=== PATIENT | male | born 1950 | race Caucasian/White ===

== ENCOUNTER 2017-01-09 06:30 | Inpatient (IN) | payer OTHER, MEDICARE ==
--- NOTE | 2016-12-22 14:02 | PAT Medication Instructions ---
Service Date Dec 22, 2016. Current Home Medication List Aspirin (Aspirin), 1 TAB PO QAM Cholecalciferol (Vitamin D), 1,000 INTER.UNIT PO 3XWK Escitalopram (Lexapro), 20 MG PO QAM Prednisone (Prednisone), 5 MG PO DAILY Sildenafil Citrate (Viagra), 100 MG PO PRN Medication Instructions For Your Scheduled Surgery - Hold the following medications the morning of surgery: Sildenafil Citrate (Viagra), 100 MG PO PRN Cholecalciferol (Vitamin D), 1,000 INTER.UNIT PO 3XWK - Take the following medications the morning of surgery with a sip of water: Prednisone (Prednisone), 5 MG PO DAILY Escitalopram (Lexapro), 20 MG PO QAM Aspirin (Aspirin), 81MG TAB PO QAM (okay to continue per surgeon) - Take the following medications as scheduled the night before surgery: Sildenafil Citrate (Viagra), 100 MG PO PRN If you have any questions please call us at [phone] (Fay Bermudez PA-C) or [phone] or [phone]
[2016-12-22 14:10] VITALS: BMI 26.0
[2016-12-22 14:10] LABS: BASO % 0.6 %; BASO ABS # 0.04 K/uL (0-0.2); COMPLETE YES; EOS % 0.1 %; HEMATOCRIT 43.8 % (42-52); IG% 0.1 %; LYMPH % 18.3 %; LYMPH ABS # 1.27 K/uL (1.2-3.4); MEAN CELL VOLUME 91.8 fL (80-100); MEAN CORPUSCULAR HEMOGLOBIN 33.3 pg (25-34); MEAN CORPUSCULAR HGB CONC 36.3 g/dl (32-36); MEAN PLATELET VOLUME 9.9 fL (7.4-10.4); MONO % 5.6 %; NEUT % 75.3 %; PLATELET COUNT 244 K/uL (130-400); RED BLOOD COUNT 4.77 M/uL (4.7-6.1); WHITE BLOOD COUNT 6.95 K/uL (4.8-10.8)
[2016-12-22 14:14] LABS: PROTHROMBIN TIME (PATIENT) 11.1 SECONDS (9.0-12.0)
--- NOTE | 2016-12-22 14:39 | DIAGNOSTIC IMAGING REPORT ---
CHEST PREADMISSION(PA/LAT) HISTORY: Preop. COMPARISON: Chest 11/05/2015. FINDINGS: Bibasilar linear densities favor subsegmental atelectasis. This has improved. No new focal lung consolidations. No evidence for pulmonary edema. No pleural effusions. No pneumothorax. The heart is normal in size. Old, healed right-sided rib fractures. IMPRESSION: Improvement in the bibasilar linear densities suggesting atelectasis. Electronically signed by: Moose Atkins M.D. 12/22/2016 2:38 PM Dictated Date/Time: 12/22/2016 2:36 PM
[2016-12-22 14:49] LABS: BUN/CREATININE RATIO 19.8 (10-20); CREATININE 0.74 mg/dl (0.60-1.40)
--- NOTE | 2017-01-02 23:18 | HISTORY & PHYSICAL EXAMINATION ---
DATE OF ADMISSION: 01/09/2017 CHIEF COMPLAINT: Right hip pain. HISTORY OF PRESENT ILLNESS: A 66-year-old gentleman who presents for surgical treatment of his right hip. He had his left hip replaced back in April of 2015. He has done well from this. Over the past year or so he has developed increased pain and discomfort in his right hip. He described groin and thigh pain. He has difficulty putting his shoes and socks on. The more he walks, the more it hurts. He is happy with his left hip and would like to have his right hip replaced. PAST MEDICAL HISTORY: 1. Depression. 2. Low back pain. 3. Arthritis. PAST SURGICAL HISTORY: 1. Knee surgery. 2. Herniorrhaphy. 3. Left total hip replacement done 04/24/2015. ALLERGIES: None. CURRENT MEDICINES: 1. Escitalopram once a day. 2. Vitamin D. 3. Baby aspirin once a day. 4. Prednisone 5 mg every other day for arthritis. SOCIAL HISTORY: A 66-year-old male patient from [place]. He is retired. He is . Two drinks per day. Does not smoke. Does chew snuff. FAMILY HISTORY: Significant for heart disease. REVIEW OF SYSTEMS: Negative for diabetes, neurologic problems, vascular problems or bleeding disorders. No chest pain or shortness of breath. No history of DVT. PHYSICAL EXAMINATION: GENERAL: Physical examination reveals a healthy, pleasant, middle-aged male. He looks to be in good health. HEENT: Benign. NECK: Supple. No lymphadenopathy. LUNGS: Clear to auscultation. HEART: Regular rate and rhythm. ABDOMEN: Soft, nontender, nondistended. EXTREMITIES: Grossly neurovascularly intact except as follows: Examination of the right hip reveals patient walks with a bit of an antalgic gait. He is about 0.5 cm short on the right side compared to the left. He has got very stiff hip and pain with any type of internal rotation. Negative straight leg raise. X-RAYS: X-rays of the right hip reviewed. It shows advanced right hip DJD. He has got complete loss of his superior joint space. He has got osteophytes particularly in the medial osteophyte. Good bone density. ASSESSMENT: A 66-year-old male status post a left total hip replacement a year and a half out with advanced right hip degenerative joint disease. He would like to have his right hip replaced. PLAN: We are going to take him to the operating room and do a right total hip replacement. The risks and benefits of this procedure were explained to patient including but not limited to DVT, PE, , infection, neurological injury, vascular injury, bleeding problems, pain, limited range of motion, stiffness, failure to relieve symptoms, incomplete relief of symptoms, need for further surgery in the future, fracture, leg length inequality, nerve palsy, dislocation, etc. The patient understands and desires to proceed. Informed consent was obtained. He does take prednisone occasionally but I do not think he takes enought to warrant stress dose steroids perioperativiely. He is planning to be discharged to home using [facility] program. I will see him back 2 weeks postop. YADIRA
[~2017-01-09] VITALS: Ht 175.3 cm; Wt 80.1 kg
[2017-01-09] VITALS (18 sets, daily range): BP systolic 91–149; BP diastolic 55–88; PULSE 66–91; TEMP 34.8–36.5; O2SAT 90–96; Ht 175.3 cm; Wt 80.1 kg
[~2017-01-09 06:30] MED LIST: ACETAMINOPHEN 500 MG TAB PO SCH; ASPI-461 PO; CEFAZOLIN 2000 MG/60 ML D5W 60 ML IV SCH; CHOL100010 PO; ESCI10TA17 PO; FAMOTIDINE 20 MG TAB PO SCH; GABAPENTIN 300 MG CAP PO SCH; LACTATED RINGER'S 1000ML 1,000 ML IV SCH; LACTATED RINGER'S 1000ML 500 ML IV ONE; LACTATED RINGER'S 1000ML IV SCH; METOCLOPRAMIDE HCL 10 MG TAB PO SCH; MISSING PHYSICIAN SIGNATURE ON ORDER SCH; PRED-301 PO; SCOPOLAMINE 1.5 MG TDSY TD SCH; SILD100T PO; TRANEXAMIC ACID INJ 1,000 MG in SODIUM CHLORIDE 0.9% 100ML 100 ML IV SCH
--- NOTE | 2017-01-09 06:51 | History & Physical Bridge Note ---
H&P Re-Evaluation Bridge Note: I have examined the patient, reviewed the History & Physical and in the interval since the performance of the History & Physical I have noted the following changes of clinical significance: No changes noted
[2017-01-09] MEDS ORDERED: BUPIVACAINE 0.5 % 5 MG/1 ML PF 10ML VIAL ONE (07:08)
[2017-01-09] MEDS ORDERED: PROPOFOL IV EMULSION 10 MG/ML 20 ML VIAL IV ONE (07:17)
[2017-01-09] MEDS ORDERED: MIDAZOLAM HCL 1 MG/ML 2ML VIAL ONE ×2 (07:17)
[2017-01-09] MEDS ORDERED: MoRPHine SULFATE PF 1 MG/ML 10 ML AMP/VIAL ONE (07:21)
[2017-01-09] MEDS ORDERED: BUPIVACAINE/EPINEPHRINE 0.5% MPF 1:200,000 30 ML VIAL ONE (07:38)
[2017-01-09] MEDS ORDERED: BACITRACIN 50000 UNIT VIAL ONE (07:38)
[2017-01-09] MEDS ORDERED: DC INTRASPINAL MORPHINE SCH (08:15)
[2017-01-09] MEDS ORDERED: NALOXONE HCL INJ 0.08 MG in SYRINGE 1.8 ML IV PRN (08:29)
[2017-01-09] MEDS ORDERED: SODIUM CHLORIDE 0.9% 1000ML 1,000 ML IV PRN (08:29)
[2017-01-09] MEDS ORDERED: NALOXONE HCL INJ 1 MG in SODIUM CHLORIDE 0.9% 1000ML 1,000 ML IV PRN ×4 (08:29)
[2017-01-09] MEDS ORDERED: LACTATED RINGER'S 1000ML 500 ML IV PRN (08:29)
[2017-01-09] MEDS ORDERED: NALBUPHINE HCL INJ 10 MG/ML AMP IV PRN (08:30)
[2017-01-09] MEDS ORDERED: NALOXONE HCL 0.4 MG/1 ML VIAL/CARP IV PRN (08:30)
[2017-01-09] MEDS ORDERED: PROMETHAZINE HCL INJ 25 MG in SODIUM CHLORIDE 0.9% 50ML 50 ML IV PRN (08:30)
[2017-01-09] MEDS ORDERED: NO NARCOTICS OR SEDATIVES SCH (08:30)
[2017-01-09] MEDS ORDERED: DiphenhydrAMINE HCL 50 MG/ML VIAL IV PRN (08:30)
[2017-01-09] MEDS ORDERED: PHENYLEPHRINE 100MCG/ML 5ML SYR IV PRN (08:30)
[2017-01-09] MEDS ORDERED: EpHEDrine SULFATE INJ 50 MG/ML AMP IV PRN ×2 (08:30)
[2017-01-09] MEDS ORDERED: ONDANSETRON INJ 2 MG/ML 2 ML VIAL IV PRN ×2 (08:30)
[2017-01-09] MEDS ORDERED: KETOROLAC TROMETHAMINE 15 MG/ML VIAL IV. PRN (08:30)
[2017-01-09] MEDS ORDERED: MEPERIDINE HCL 25 MG/ML CARP IV PRN (08:30)
[2017-01-09] MEDS ORDERED: ATROPINE SULFATE 0.1 MG/ML 5ML SYR IV PRN (08:30)
[2017-01-09] MEDS ORDERED: KETOROLAC TROMETHAMINE 30 MG/ML VIAL IV. PRN (08:30)
[2017-01-09] MEDS ORDERED: MoRPHine SULFATE PF 1 MG/ML 10 ML AMP/VIAL EPI PRN (08:30)
[2017-01-09] MEDS ORDERED: HYDROmorphone INJ 2 MG/ML SYR/VIAL IV PRN (08:30)
[2017-01-09] MEDS ORDERED: PHENYLEPHRINE HCL INJ 10 MG/ML VIAL ONE (09:21)
[2017-01-09] MEDS ORDERED: EpHEDrine SULFATE 50MG/5ML SYR ONE (09:21)
--- NOTE | 2017-01-09 10:19 | [facility] Post Operative Brief Note ---
Immediate Operative Summary Operative Date Jan 09, 2017. Pre-Operative Diagnosis Advanced Right Hip Degenerative Joint Disease Post-Operative Diagnosis Advanced Right Hip Degenerative Joint Disease Procedure(s) Performed Right Total Hip Arthroplasty, Uncemented Surgeon Dr. Bagley Hydraulic Design Engineer Surgeon(s) Fly Choi PA-C Estimated Blood Loss 300 mL Findings Right Hip DJD Fluids (cc crystalloids) 1400 cc Specimens A: Right Femoral Head Drains None Anesthesia Spinal Complication(s) None Disposition Recovery Room / PACU
[2017-01-09] MEDS ORDERED: BISACODYL 10 MG SUPP PR PRN (10:30)
[2017-01-09] MEDS ORDERED: ALUMINUM/MAGNESIUM/SIMETH (MAALOX MAX) 30 ML UDC PO PRN (10:30)
[2017-01-09] MEDS ORDERED: SILVER SULFADIAZINE 1% CR 50 GM JAR EXT PRN (10:30)
[2017-01-09] MEDS ORDERED: TAMSULOSIN HCL 0.4 MG CAP PO PRN (10:30)
[2017-01-09] MEDS ORDERED: MAGNESIUM HYDROXIDE SUSP 30 ML UDC PO PRN (10:30)
--- NOTE | 2017-01-09 10:53 | DIAGNOSTIC IMAGING REPORT ---
AP PELVIS AND RIGHT HIP 2 VIEWS CLINICAL HISTORY: Right hip arthroplasty COMPARISON STUDY: No previous studies for comparison. FINDINGS: There are postsurgical changes of bilateral total hip arthroplasties. Skin jesus are present on the right indicating recent surgery. There is air within soft tissues. There are no acute fractures. There is no dislocation. There are multiple surgical clips within the pelvis. IMPRESSION: Postsurgical changes of a recent total right hip arthroplasty. No complicating features identified. Electronically signed by: Mayco Busby M.D. 01/09/2017 10:51 AM Dictated Date/Time: 01/09/2017 10:50 AM
--- NOTE | 2017-01-09 11:40 | Anesthesiology Progress Note ---
Anesthesia Post Op Note Date & Time Jan 09, 2017 at 11:39 Vital Signs Pain Intensity: 0 Vital Signs Past 12 Hours Date Time Temp Pulse Resp B/P Pulse Ox O2 Delivery O2 Flow Rate FiO2 01/09/17 11:15 98/57 01/09/17 11:13 76 19 93 01/09/17 11:13 77 19 01/09/17 11:08 81 20 01/09/17 11:08 82 20 93 01/09/17 11:05 35.8 01/09/17 11:05 99/59 01/09/17 11:03 77 13 92 01/09/17 11:03 76 13 01/09/17 11:02 79 16 91/57 91 01/09/17 11:02 81 16 01/09/17 10:57 79 21 94 01/09/17 10:57 79 21 01/09/17 10:55 99/67 01/09/17 10:52 75 14 01/09/17 10:52 75 14 92 01/09/17 10:51 82 24 01/09/17 10:51 83 24 93 01/09/17 10:50 105/62 01/09/17 10:46 77 15 01/09/17 10:46 76 15 92 01/09/17 10:45 100/60 01/09/17 10:41 76 13 94 01/09/17 10:41 76 13 01/09/17 10:40 100/54 01/09/17 10:36 86 16 01/09/17 10:36 83 16 93 01/09/17 10:35 81 16 116/61 94 01/09/17 10:35 82 16 01/09/17 10:30 80 14 126/67 92 01/09/17 10:30 79 14 01/09/17 10:26 134/84 01/09/17 10:25 84 19 92 01/09/17 10:25 86 19 01/09/17 10:20 83 16 96/59 92 01/09/17 10:20 36.0 82 22 96/59 94 Nasal Cannula 2 01/09/17 10:20 83 16 01/09/17 07:08 36.5 66 20 149/88 95 Room Air Notes Mental Status: alert / awake / arousable, participated in evaluation Pt Amnestic to Procedure: Yes Nausea / Vomiting: adequately controlled Pain: adequately controlled Airway Patency, RR, SpO2: stable & adequate BP & HR: stable & adequate Hydration State: stable & adequate Anesthetic Complications: no major complications apparent
[2017-01-09] MEDS: FERROUS GLUCONATE 324 MG TAB PO SCH ×2 (12:30→18:06)
[2017-01-09] MEDS: D5W AND 1/2NSS + 20MEQ KCL 1,000 ML IV SCH ×2 (12:45→21:40)
[2017-01-09] MEDS: HYDROCORTISONE IV 100 MG in SYRINGE 0 ML IV SCH ×2 (14:22→21:40)
[2017-01-09] MEDS: ACETAMINOPHEN 500 MG TAB PO SCH ×2 (14:23→21:39)
[2017-01-09] MEDS: CEFAZOLIN IV 2,000 MG in DEXTROSE 5% 50ML 50 ML IV SCH ×2 (15:42→23:18)
[2017-01-09] MEDS: CHECK SCOPOLAMINE PATCH PLACEMENT SCH ×2 (15:44→22:39)
[2017-01-09] MEDS ORDERED: CHECK SCOPOLAMINE PATCH PLACEMENT SCH (16:00)
[2017-01-09] MEDS ORDERED: TRANEXAMIC ACID INJ 1,000 MG in SODIUM CHLORIDE 0.9% 100ML 100 ML IV SCH (16:30)
--- NOTE | 2017-01-09 17:47 | PROGRESS NOTE ---
DATE: 01/09/2017 SUBJECTIVE: A 66-year-old gentleman postop from a right total hip replacement. He is doing well. Not having any pain yet. No chest pain or shortness of breath. Not feeling dizzy or lightheaded. OBJECTIVE: VITAL SIGNS: Temperature 36.3. Vital signs stable. PHYSICAL EXAMINATION: GENERAL: Reveals a healthy, pleasant, middle-aged male. He is lying in bed, looks pretty comfortable. LUNGS: Clear to auscultation. HEART: Regular rate and rhythm. ABDOMEN: Soft, nontender, nondistended. EXTREMITIES: Grossly neurovascularly intact except as follows: Examination of the right hip and leg reveals the leg lengths to be equal. His hip is located. Dressing is clean, dry and intact. His thigh is soft and supple. He is neurologically intact. He can dorsiflex and plantarflex his foot appropriately. X-RAYS: X-rays of the right hip from recovery room were reviewed. It shows a right uncemented total hip arthroplasty. Components to be in good position. No signs of problems. ASSESSMENT: A 66-year-old gentleman postop from a right total hip replacement, doing well. His pain is controlled. Hip is located. He is neurologically intact. PLAN: 1. DVT prophylaxis including thigh-high TEDs, SCDs, and aspirin twice a day. 2. PT/OT. Weightbearing as tolerated. Right total hip protocol. 3. IV antibiotics x24 hours. 4. Pain control, doing well with current pain regimen. 5. Disposition: He is planning to be discharged to home with some home health once adequately recovered.
[2017-01-09] MEDS: DOCUSATE SODIUM 100 MG CAP PO SCH (21:38)
[2017-01-09] MEDS: ASPIRIN 325 MG ECTAB PO SCH (21:38)
[2017-01-10] VITALS (9 sets, daily range): BP systolic 96–114; BP diastolic 46–63; PULSE 59–74; TEMP 36.4–36.7; O2SAT 86–96
[2017-01-10] MEDS ORDERED: MoRPHine SULFATE 2 MG/ML CARP IV PRN (01:01)
[2017-01-10] MEDS ORDERED: ONDANSETRON INJ 2 MG/ML 2 ML VIAL IV PRN (01:01)
[2017-01-10] MEDS ORDERED: ZOLPIDEM TARTRATE 5 MG TAB PO PRN (01:01)
[2017-01-10] MEDS ORDERED: METOCLOPRAMIDE HCL INJ 5 MG/ML 2 ML VIAL IV PRN (01:01)
[2017-01-10] MEDS: KETOROLAC TROMETHAMINE 15 MG/ML VIAL IV. SCH ×4 (01:27→19:28)
--- NOTE | 2017-01-10 01:43 | OPERATIVE REPORT ---
DATE OF OPERATION: 01/09/2017 SURGEON: Kvng Bagley MD FINISH REPAIR WORKER: ALEXANDRU Donovan PREOPERATIVE DIAGNOSIS: Right hip degenerative joint disease. POSTOPERATIVE DIAGNOSIS: Same. PROCEDURE PERFORMED: Right uncemented total hip arthroplasty. COMPLICATIONS: None. ESTIMATED BLOOD LOSS: 300 mL. FLUID REPLACEMENT: 1400 mL crystalloid fluid replacement. ANESTHESIA: Spinal. DRAINS: None. SPECIMENS: Right femoral head sent for pathology. OPERATIVE INDICATIONS: The patient is a 66-year-old fairly active gentleman who has a long history of hip problems. He underwent a left hip replacement about 2 years ago and done well from this. Over the past several years, he developed increased pain and discomfort in his right hip. It has been limiting his activities. X-rays show advanced right hip DJD. He has failed conservative treatment and elected to proceed with operative treatment. OPERATIVE FINDINGS: Operative findings revealed advanced right hip DJD. 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 Moderate size joint effusion. OPERATIVE IMPLANTS: Operative implants consisted of: 1. Biomet G7 size 56 mm acetabular shell. 2. A 6.5 cancellous acetabular screws, one at 35 mm length and one at 25 mm in length. 3. An apex hole eliminator. 4. A Biomet highly cross-linked polyethylene liner with 56 mm outer diameter, 36 mm inner diameter with a norman placed inferior and posterior. 5. A DePuy size 13.5 large stature femoral stem. 6. A +5/36 mm metal articular ball. OPERATIVE PROCEDURE: The patient was taken to the operating room, identified and placed on operative table in supine position. All contact areas were appropriately padded. IV antibiotics were provided by anesthesia team. A spinal anesthetic had been implemented in the holding area. Odonnell catheter was placed in sterile fashion. The patient was then placed in the left lateral decubitus position. An axillary roll was placed. [facility] position[facility] was used for positioning. The right hip and leg were then prepped and draped in the usual sterile fashion. A posterolateral approach to the right hip was then performed through a curvilinear incision centered over the greater trochanter. Sharp dissection was carried out through the subcutaneous tissues down to the level of the IT band and gluteal fascia. The IT band and gluteal fascia was incised longitudinally in line with skin incision. The underlying greater trochanteric bursa was excised. The piriformis and external rotators were tagged and taken off the posterior aspect of the femur. Great care was taken throughout the procedure to protect the sciatic nerve at all times. A posterior capsulotomy was then performed leaving a large flap for later repair. Hip was internally rotated and dislocated. Femoral neck osteotomy cut was made with the final cut about 7 mm above the lesser trochanter. Femoral head was removed and sent for pathology. The femur was retracted anteriorly. Attention was then drawn to the acetabulum. The acetabular labrum was excised. The pulvinar fat was excised. Sequential reaming of the acetabulum was then performed beginning with a size 49 and progressing up to 55. A 56 mm Biomet G7 acetabular shell was then placed in about 40 degrees of lateral opening and 20 degrees of anteversion. It was fixed with two 6.5 cancellous acetabular screws. A trial liner was placed. Attention was then drawn to the femur. The proximal femur was entered with a cookie cutter followed by canal finder and lateralizing reamer. Sequential reaming of the femur was then performed beginning with a size 10 and progressing up to a 13. We got good chatter at 13. I broached beginning with a size 10.5 small broach and progressing up to a 13.5 large. With the large broach, it did tend to get stuck inside the canal and we spent probably 20 minutes at various times trying to extract the broach. The hip was then trialed. The hip was found with the +5 articular ball seemed to restore leg lengths appropriate. Hip was stable in full extension and external rotation and flexion to 90 degrees, internal rotation to 60 degrees. I did elect to place a norman inferior and posterior to maximize stability in flexion due to my concern about his compliance. Attention was then drawn toward placement of permanent implants. All trial implants were removed. An apex hole eliminator was placed. A highly cross-linked polyethylene liner with a norman placed inferior and posterior was placed. A 13.5 large stature AML femoral stem was placed. A +5/36 mm metal articular ball was placed. The hip was once again reduced and located and found to be stable. Attention was then drawn toward closing. The wound was irrigated with copious amounts of pulsatile lavage solution. I did inject locally with 60 mL of 0.5% Marcaine with epinephrine. Posterior capsule and external rotators were repaired with #2 Tycron suture through drill holes in the posterior trochanter. The IT band and gluteal fascia were then closed with #1 PDS suture in running fashion. The subcutaneous tissues were then closed with 2 layers with the deep layer #1 Vicryl suture and the subcutaneous tissue with 2-0 Dexon suture in a buried interrupted fashion. The skin was closed with skin jesus. Leg was then cleaned and dried and a sterile dressing of Xeroform, 4 x 4, sterile ABD pad and foam tape was applied. The patient was then transferred to the recovery room in stable condition. The patient tolerated the procedure with no complications. All needle and sponge counts were correct at the end of the operation. I attest to the content of the Intraoperative Record and any orders documented therein. Any exceptio ns are noted below.
[2017-01-10] MEDS: HYDROCORTISONE IV 100 MG in SYRINGE 0 ML IV SCH (05:26)
[2017-01-10] MEDS: ACETAMINOPHEN 500 MG TAB PO SCH ×3 (05:26→20:54)
[2017-01-10 06:20] LABS: BASO % 0.1 %; BASO ABS # 0.01 K/uL (0-0.2); COMPLETE YES; HEMATOCRIT 38.2 % (42-52); IG% 0.3 %; LYMPH % 9.2 %; LYMPH ABS # 1.08 K/uL (1.2-3.4); MEAN CELL VOLUME 96.5 fL (80-100); MEAN CORPUSCULAR HEMOGLOBIN 33.8 pg (25-34); MEAN CORPUSCULAR HGB CONC 35.1 g/dl (32-36); MEAN PLATELET VOLUME 9.8 fL (7.4-10.4); MONO % 6.7 %; NEUT % 83.7 %; PLATELET COUNT 226 K/uL (130-400); RED BLOOD COUNT 3.96 M/uL (4.7-6.1); WHITE BLOOD COUNT 11.78 K/uL (4.8-10.8)
[2017-01-10 06:59] LABS: BUN/CREATININE RATIO 16.8 (10-20); CALCIUM 8.2 mg/dl (8.5-10.1); CREATININE 0.76 mg/dl (0.60-1.40); POTASSIUM 4.1 mmol/L (3.5-5.1)
[2017-01-10] MEDS: CHECK SCOPOLAMINE PATCH PLACEMENT SCH ×3 (07:31→22:43)
[2017-01-10] MEDS: D5W AND 1/2NSS + 20MEQ KCL 1,000 ML IV SCH (08:10)
[2017-01-10] MEDS ORDERED: OXYC-57 PO (08:29)
[2017-01-10] MEDS ORDERED: ASPEC325 PO (08:29)
--- NOTE | 2017-01-10 08:31 | Discharge Instructions ---
Discharge Instructions Date of Service Jan 10, 2017. Admission Reason for Admission: Right Hip Degenerative Joint Disease Discharge Discharge Diagnosis / Problem: Right Hip Replacement Discharge Goals Goal(s): Decrease discomfort, Improve function, Increase independence, Improve disease control, Therapeutic intervention Activity Recommendations Activity Limitations: per Instructions/Follow-up section (Total HIp Precautions ) Weightbearing Status: Right weightbearing . Instructions / Follow-Up Instructions / Follow-Up ACTIVITY RECOMMENDATIONS: Physical Therapy: * Aggressive physical therapy is not usually needed. You will learn to take care of yourself safely and walk. * Follow the "Hip Precautions Instructions." * In some cases, the group social worker at the hospital will arrange to have a therapist come to your house for the first couple of weeks to help you learn these skills. * You need to practice on your own or with the help of a family member as needed. * When you learn these skills, most of the therapy can be done on your own. Home Exercise: * You were shown a series of exercises in the hospital. Do these exercises three to four times each day including the exercises you were shown in physical therapy. Walking: * Get up and walk several times each day. For the first four weeks, try not to stand or walk for more than one hour at a time. If you do stand or walk for more than one hour, you will not hurt anything, but your leg will likely swell. * As you feel comfortable, you may change from the walker or crutches to a cane and then to independent walking. MEDICATIONS: New Medicine: * You will likely be taking one or more of these medicines: 1. Percocet - Take, as directed, when you need it, every four to six hours to control your pain. 2. Aspirin - Thins your blood to lessen the chance of forming a blood clot. * The most common side effects of pain medicine and iron are nausea and constipation. If nausea or constipation is too much of a problem or if you have any questions about your new medicines or doses, call [facility] at [phone]. We will try to help you manage these issues. VERY IMPORTANT TO READ AND REVIEW" Pain: * The immediate post-operative period after hip replacement surgery is often quite painful. * You are given a prescription for pain medicine. You should take it, as directed, when you need it, especially before physical therapy and before going to bed. Pain that interferes with sleep is very common and can last several months. * You will likely need pain medicine for the first two to four weeks. It will not stop all of the pain. The pain will lessen and as you feel better, you may change to milder pain medicine such as Tylenol. * The most common side effects of pain medicine are nausea and constipation, so don't take more than you need. SPECIAL CARE INSTRUCTIONS: TEDs/Elastic Stockings: * The white elastic stockings help limit swelling and prevent blood clots from forming in your legs. The more you wear them, the more they work. * Wear them for six weeks. Prevention of Infection: * Take antibiotics one hour before any dental cleaning, dental work, urological procedure, gastrointestinal procedure or any invasive surgery in order to prevent your new joint from getting infected. * You may get the antibiotics from the doctor performing the procedure or you may call our office at before and we will call in a prescription to the pharmacy of your choice. Things to Watch For: * Drainage from the incision site that occurs more than one week after your surgery. * Severely increased leg pain or swelling. * Increased redness at the incision site. * Fever above 102 degrees Fahrenheit. * Unusual chest pain or shortness of breath. * Unusual pain or burning with urination. Call [facility] at with any of the above problems or if you have any questions about your medicines or recovery. FOLLOW UP VISIT: Make an appointment to see your doctor for approximately two weeks after surgery for a progress check and staple removal by calling the office at . Current Hospital Diet Patient's current hospital diet: Regular Diet Discharge Diet Recommended Diet: Regular Diet Procedures Procedures Performed: Right Total Hip Arthroplasty, Uncemented Pending Studies Studies pending at discharge: no Medical Emergencies . Who to Call and When: Medical Emergencies: If at any time you feel your situation is an emergency, please call [phone] immediately. . Non-Emergent Contact Non-Emergency issues call your: Surgeon . "Provider Documentation" section prepared by Kvng Bagley. . VTE Core Measure Inpt VTE Proph given/why not?: Other Anticoagulation, T.E.D. Stockings, SCD's
[2017-01-10] MEDS: ESCITALOPRAM OXALATE 10 MG TAB PO SCH (08:45)
[2017-01-10] MEDS: PANTOprazole SOD 40 MG TAB PO SCH (08:45)
[2017-01-10] MEDS: MULTIVITAMIN TAB PO SCH (08:45)
[2017-01-10] MEDS: ASPIRIN 325 MG ECTAB PO SCH ×2 (08:45→20:53)
[2017-01-10] MEDS: CHOLECALCIFEROL 1000 INTER.UNIT TAB PO SCH (08:45)
[2017-01-10] MEDS: FERROUS GLUCONATE 324 MG TAB PO SCH ×3 (08:45→17:47)
--- NOTE | 2017-01-10 08:45 | PROGRESS NOTE ---
DATE: 01/10/2017 DATE: 01/10/2017. SUBJECTIVE: A 66-year-old gentleman postop day 1 from right total hip replacement. He is doing pretty well. No pain at all lying in bed. Does have some pain when he is getting around. No chest pain or shortness of breath. Not feeling dizzy or lightheaded. OBJECTIVE: VITAL SIGNS: Temperature 36.7. Vital signs stable. PHYSICAL EXAMINATION: GENERAL: Reveals a healthy, pleasant, middle-aged male. He is sitting up in bed and looks pretty comfortable. LUNGS: Clear to auscultation. HEART: Regular rate and rhythm. ABDOMEN: Soft, nontender, nondistended. EXTREMITY EXAMINATION: Grossly neurovascularly intact except as follows: Examination of the right leg reveals leg lengths to be equal. His hip is located. Very minimal swelling. Bandage is clean, dry and intact. Thigh is soft and supple. He is neurologically intact. LABORATORY DATA: Hemoglobin 13.4. Hematocrit 38.2. Electrolytes are stable. ASSESSMENT: A 66-year-old gentleman postop day 1 from right total hip replacement, doing well. Pain is controlled. Hip is located. He is neurologically intact. PLAN: 1. DVT prophylaxis including thigh-high TEDs, SCDs, and aspirin twice a day. 2. PT/OT. Weight bear as tolerated. Right total hip protocol. 3. Pain control. Doing pretty well with current pain regimen. 4. He is going to be discharged to home with some home health once adequately recovered.
[2017-01-10] MEDS: DOCUSATE SODIUM 100 MG CAP PO SCH ×2 (08:50→20:53)
[2017-01-10] MEDS: TAPENTADOL ER 50 MG TABCR PO SCH ×2 (08:50→20:53)
[2017-01-10] MEDS: OXYCODONE HCL IR 5 MG TAB (IMMEDIATE RELEASE) PO PRN (12:07)
[2017-01-11] MEDS: KETOROLAC TROMETHAMINE 15 MG/ML VIAL IV. SCH ×2 (01:38→07:40)
[2017-01-11] MEDS: ACETAMINOPHEN 500 MG TAB PO SCH (05:43)
[2017-01-11] MEDS: OXYCODONE HCL IR 5 MG TAB (IMMEDIATE RELEASE) PO PRN ×2 (05:46→09:39)
[2017-01-11 06:34] VITALS: BP 125/70; PULSE 72; TEMP 36.6; O2SAT 93
[2017-01-11] MEDS: PANTOprazole SOD 40 MG TAB PO SCH (07:39)
[2017-01-11] MEDS: MULTIVITAMIN TAB PO SCH (07:39)
[2017-01-11] MEDS: TAPENTADOL ER 50 MG TABCR PO SCH (07:39)
[2017-01-11] MEDS: FERROUS GLUCONATE 324 MG TAB PO SCH (07:39)
[2017-01-11] MEDS: DOCUSATE SODIUM 100 MG CAP PO SCH (07:39)
[2017-01-11] MEDS: CHOLECALCIFEROL 1000 INTER.UNIT TAB PO SCH (07:39)
[2017-01-11] MEDS: ASPIRIN 325 MG ECTAB PO SCH (07:40)
[2017-01-11] MEDS: ESCITALOPRAM OXALATE 10 MG TAB PO SCH (07:40)
[2017-01-11 07:56] VITALS: O2SAT 93
[2017-01-11 09:02] VITALS: BP 125/70; PULSE 72; O2SAT 93
[2017-01-11 09:08] VITALS: BP 125/70; PULSE 72; TEMP 36.6; O2SAT 93
--- NOTE | 2017-01-11 09:13 | PROGRESS NOTE ---
DATE: 01/11/2017 SUBJECTIVE: A 66-year-old gentleman postop day 2 from right total hip replacement. He is doing pretty well. Pain is controlled. He denies any chest pain or shortness of breath. Not feeling dizzy or lightheaded. OBJECTIVE: VITAL SIGNS: Temperature 36.6. Vital signs stable. PHYSICAL EXAMINATION: GENERAL: Reveals a healthy, pleasant, middle-aged male. He is lying in bed, looks pretty comfortable. LUNGS: Clear to auscultation. HEART: Has regular rate and rhythm. ABDOMEN: Soft, nontender, nondistended. EXTREMITIES: Grossly neurovascularly intact except as follows: Examination of the right leg reveals the dressing to be clean, dry and intact. Leg lengths are equal. He can dorsiflex and plantarflex his foot appropriately. He is neurologically intact. He has very mild thigh swelling. ASSESSMENT: A 66-year-old gentleman postop day 2 from a right hip replacement, doing well. Pain seems to be controlled. Hip is located. He is neurologically intact. PLAN: 1. DVT prophylaxis including thigh-high TEDs, SCDs, and aspirin twice a day. 2. PT/OT. Weightbearing as tolerated. Right total hip protocol. 3. Pain control, doing well with current pain regimen. 4. Disposition: Plan to discharge to home with some home health later today.
--- NOTE | 2017-01-14 15:20 | DISCHARGE SUMMARY ---
ADMITTING PHYSICIAN AND SURGEON: Dr. Bagley. ADMITTING DIAGNOSIS: Right hip degenerative joint disease. SURGERY PERFORMED: Right total hip arthroplasty. SECONDARY DIAGNOSES: Depression, low back pain, arthritis. CONSULTS: None obtained. HISTORY AND PHYSICAL EXAMINATION: Well documented in the patient's chart. HOSPITAL COURSE: The patient was admitted on 01/09/2017, underwent total hip arthroplasty, tolerated the procedure well. There were no complications. He was transferred to the PACU postoperatively and later to the orthopedic floor for further care. He was given Ancef for antibiotic prophylaxis, SUDARSHAN stockings, SCDs and aspirin for DVT prophylaxis. Hemoglobin, hematocrit and vital signs were monitored during his hospital stay and remained stable. He did not require any blood transfusions. There were no complications. By postoperative day 2, he was tolerating a general diet. Pain was controlled with oral pain medicine. He was participating in physical therapy and had no signs or symptoms of deep vein thrombosis. On postop day 2, he was discharged home and set up with home health services. He was given printed discharge instructions including new prescriptions for aspirin 325 mg b.i.d., Percocet. He will continue his home medications with the exception of his home dose of aspirin which was changed. Continue physical therapy, weightbearing as tolerated, SUDARSHAN stockings, total hip precautions. Follow up in 10-12 days or sooner if there are any problems or concerns.
== END 2017-01-11 10:23 | disposition home health service (06) | DRG 470 ==
LOC: ENRESERVTM → ENRESERVDT → C.ACU 06:30 → C.3E 06:40
PROVIDERS: ADMIT Orthopaedic Surgery Sports Medicine; ATTEND Orthopaedic Surgery Sports Medicine
PROC: 0SR902A Replacement of Right Hip Joint with Metal on Polyethylene Synthetic Substitute, Uncemented, Open Approach (ICD-10-PCS; principal; 2017-01-09 08:50)
DX: M16.11 Unilateral primary osteoarthritis, right hip (principal); Z96.642 Presence of left artificial hip joint; F32.9 Major depressive disorder, single episode, unspecified; M54.5 Low back pain; G47.33 Obstructive sleep apnea (adult) (pediatric); M54.10 Radiculopathy, site unspecified; F17.290 Nicotine dependence, other tobacco product, uncomplicated; M25.451 Effusion, right hip; Z79.82 Long term (current) use of aspirin; Z79.52 Long term (current) use of systemic steroids; Z79.899 Other long term (current) drug therapy

== ENCOUNTER → 2017-01-15 | Outpatient (CLI) | payer OTHER, MEDICARE ==
[~2017-01-15] MED LIST changes: -ACETAMINOPHEN 500 MG TAB PO SCH; +ASPEC325 PO; -ASPI-461 PO; -CEFAZOLIN 2000 MG/60 ML D5W 60 ML IV SCH; -FAMOTIDINE 20 MG TAB PO SCH; -GABAPENTIN 300 MG CAP PO SCH; -LACTATED RINGER'S 1000ML 1,000 ML IV SCH; -LACTATED RINGER'S 1000ML 500 ML IV ONE; -LACTATED RINGER'S 1000ML IV SCH; -METOCLOPRAMIDE HCL 10 MG TAB PO SCH; -MISSING PHYSICIAN SIGNATURE ON ORDER SCH; +OXYC-57 PO; -SCOPOLAMINE 1.5 MG TDSY TD SCH; -SILD100T PO; -TRANEXAMIC ACID INJ 1,000 MG in SODIUM CHLORIDE 0.9% 100ML 100 ML IV SCH
[2017-01-15 15:15] LABS: URINE APPEARANCE CLEAR (CLEAR); URINE BILIRUBIN NEG (NEG); URINE COLOR DK YELLOW; URINE NITRITE NEG (NEG); URINE PH 6.5 (4.5-7.5); URINE SPECIFIC GRAVITY 1.023 (1.000-1.030); UROBILINOGEN NEG (NEG)
[2017-01-15 15:18] LABS: MANUAL MICROSCOPIC REQUIRED? NO; REVIEW REQ? NO
--- NOTE | 2017-01-19 11:18 | CODING QUERY NO DIAGNOSIS ---
Valid Physician Order Needed A valid physician order must be submitted in order to properly bill for the service(s) provided, including date of service(s), valid diagnosis, and physician signature. If these tests are done on a recurring basis the original physician order must be submitted in order to code and bill for the service(s) provided. Please fax us the original, signed physician order so that we may expedite billing to [phone] DOS 01/15/17 * URINE CULTURE * URINE M.I.C. SENSITIVITY * ID, URINE CULTRUE ISOLATE * URINALYSIS W/O MICROSCOPY Thank you [facility] Information Management
== END | disposition home or self-care (01) ==
LOC: C.LABSPEC 14:15
PROVIDERS: ATTEND Orthopaedic Surgery Sports Medicine
DX: Z47.1 Aftercare following joint replacement surgery (principal); M54.5 Low back pain; F32.9 Major depressive disorder, single episode, unspecified; R35.0 Frequency of micturition

== ENCOUNTER → 2018-01-26 | Outpatient (CLI) | payer OTHER, MEDICARE ==
[~2018-01-26] MED LIST changes: -OXYC-57 PO
--- NOTE | 2018-01-27 05:47 | PAP/PSG TECHNICIAN REPORT ---
[facility] Lawn Mower Repairer Polysomnogram Report Study name: None Report date: 01/27/2018 Study date: 01/26/2018 Referring Physician: Dr. Senait Vasquez M.D. Name: SHELLY CARRANZA Interpreting Physician: Senait Vasquez M.D. Date of : 1950 Lawn Mower Repairer: YSABEL Kulkarni. Sex: Male Age: 67 StudyType: PSG Weight: 178 lbs Height: 67 years, Height 5' 10" Neck Circum:16inches BMI: 25.54 Medications: ASA 81mg, Lexapro 20mg, Plaquenil 200mg, Deltasone 1mg, Vit D 1000unit Patient History Study started on room air with ETCO2 monitoring in room #6. 67 yr old male here tonight for a possible split study. He complains of sleep onset insomnia. He snores and has fatigue. He falls asleep at 12 am and awakens at 9am. His ESS=6/24. Neck circ=16inches. Parameters Monitored NPSG: E1-M2, E2-M1, Fp1-M2, Fp2-M1, F3-M2, F4-M2, F4-M1, C3-M2, C4-M2, C4-M1, O1-M2, O2-M2, O2-M1, T3-M2, T4-M1, P3-M2, P4-M1, CHIN1, CHIN2, HR, EKG, Legs, PFLOW, SNOR, FLOW, CFLOW, Tidal Volume, THOR, ABDO, SpO2, PLTH, CPRESS, ETCO2 Wave, ETCO2, pH Sleep Architecture Sleep Stages Time at Lights Off 10:50:25 PM STAGES Time (min.) TST (%) Time at Lights On 5:30:55 AM Wake 122.0 -- Total Recording Time (TRT) 400.50 min. N1 31.5 11 Total Sleep Period (TSP) 361.0 min. N2 214.0 77 Total Sleep Time (TST) 278.5min. N3 0.0 0 Awake Time 122.0 min. REM 33.0 12 Wake after Sleep Onset 82.5 min. Sleep Efficiency (SE) 70 % Sleep Onset Latency (CLIFTON) 39.5 min. Number of Stage 1 Shifts None Awakenings 13 Stage Changes 87 Number of REM periods 4 REM 33.0 12 REM Latency 177.0 min. NREM 245.5 88 Body Position Analysis Supine Right Left Side Prone Vertical Total Sleep Time (min.) 56.8 34.0 217.5 251.52 0.0 0.0 Total Sleep Time (%) 10% 12% 78% 90 0% N/A% Total Sleep Time REM (min.) 0.0 0.0 33.0 None 0.0 0.0 Total Sleep Time NREM (min.) 27.0 34.0 184.5 None 0.0 0.0 Intermittent Wake (min.) 29.8 23.8 68.4 None 0.0 0.0 Total Sleep Period (%) 12% None None None None None Arousals Myoclonus (PLM) * Events Count Index Events Count Index Spontaneous 8 2 Events Awake (PLMW) 95 46.7 Respiratory 19 4.3 Events Asleep w/ Arousal (PLMA) 21 4.5 PLM 20 5 Events Asleep w/o Arousal (PLMS) 528 113.8 Snoring 2 0 Total Asleep 549 118.3 Total 49 11 Total 644 96 Respiratory Analysis * CA OA MA CH H RERA Total Count 0 1 0 0 30 0 31 Index 0.0 0.2 0.0 0 6.5 0 6.7 Mean Duration 0.0 16.5 0.0 0.00 33.0 0.0 32.4 Longest Duration 0.0 16.5 0.0 0.00 0.0 0.0 69.1 Respiratory Event Summary Total Supine ~Supine Right Left Prone REM NREM Apneas Count 1 0 1 0 1 N/A 1 0 Index 0.2 0 0 0.0 0.3 N/A 2 0 Hypopneas (4% Desat) Count 30 30 0 0 0 N/A 0 30 Index 6.5 66.7 0 0.0 0.0 N/A 0.0 7.3 Apneas & All Hypopneas Count 31 30 1 0 1 N/A 1 30 Index 6.7 67 0 0 0 N/A 1.8 7.3 Respiratory Events (Vice President [employer]ostatistics+All Hyp+RERA) Count 31 30 1 0 1 N/A 1 30 Index 6.7 67 0 0.0 0.3 N/A 1.8 7.3 Respiratory Related Arousal Count 19 30 0 0 0 N/A 0 20 Index 4.3 44 0 0 0 N/A 0 5 Snoring Analysis Supine Right Left Prone REM NREM Total Snore duration 5.0 min Snores count 153 11 28 N/A 2 190 192 Snore mean duration 1.6 Sec Snores index 340 19 8 N/A 3.6 46.4 41.4 TST with snoring (%) 1.8% SpO2 Analysis Total REM NREM Awake <50% 0.0 min. 0.0 min. 0.0 min. 0.0 min. 51 - 60% 0.0 min. 0.0 min. 0.0 min. 0.0 min. 61 - 70% 0.0 min. 0.0 min. 0.0 min. 0.0 min. 71 - 80% 3.1 min. 0.0 min. 2.8 min. 0.3 min. 81 - 90% 352.5 min. 32.6 min. 223.0 min. 96.9 min. 91 - 100% 17.7 min. 0.0 min. 9.4 min. 8.3 min. Average 88 88 88 89 Minimum SpO2 74 84 74 78 Desaturation Event Index 4.8 0.0 5.9 3.9 # Desat. Events below 89% 31 N/A 24 7 Time(%) with Saturation below 89% 44.7 6.3 28.1 10.3 Time(min.) with Saturation below 89% 167.0 23.6 105.0 38.4 Heart Rate Analysis End Tidal CO2 Analysis Min (bpm) Max (bpm) Average (bpm) TSP (mins) % of TSP Awake 47 127 61 Above 55 mmHg 0.0 0.0 NREM 46 127 57 50-55 mmHg 0.0 0.0 REM 47 127 56 45-50 mmHg 0.0 0.0 Overall 46 127 57 40-45 mmHg 25.7 9.2 35-40 mmHg 223.0 80.1 30-35 mmHg 11.2 4.0 Average ETCO2 0.2 Supplemental O2 Values Minimum O2 level: None Value Start Time End Time Lawn Mower Repairer Comments Mr. Carranza slept in the right, left and supine positions. No cardiac arrhythmia noted. PLM's were noted. No bruxism noted. Snoring was noted and scored as a 3 on a scale of 1 through 5. (0=no snoring, 5=snoring loud enough to be heard through a closed door or down the [address] way). He awoke to use the restroom 2 times during the night. He stated that he slept about the same as when at home. He did not qualify for a split night study. The final report will be interpreted and signed by a sleep physician. The completed physician report will then be placed in the patient medical record. Therapy (cm H2O) 0 TIB (min.) 400.5 TST (min.) 278.5 Sleep Onset (min.) 39.5 REM Onset From Sleep (min.) 177.0 Sleep Efficiency % 70 Wakefulness (%) 30 Wakefulness (min.) 122.0 NREM 1 (%) 11 NREM 1 (min.) 31.5 NREM 2 (%) 77 NREM 2 (min.) 214.0 NREM 3 (%) 0 NREM 3 (min.) 0.0 REM (%) 12 REM (min.) 33.0 # Arousals 49 Arousal Index 11 # Snore 192 Snore Index 41.4 AHI 6.7 AHI Supine 67 AHI Non-Supine 0 NREM AHI 7.3 REM AHI 1.8 RDI 6.7 # Obstructive Apnea 1 # Central Apnea 0 # Mixed Apnea 0 # Hypopneas 30 RERAs 0 Total Respiratory Events 32 Time Below SpO2 89% (min.) 128.6 Mean NREM SpO2 (%) 88 Mean REM SpO2 (%) 88 Mean Sleep SpO2 (%) 88 Min NREM SpO2 (%) 74 Min REM SpO2 (%) 84 Position Supine (min.) 56.8 Position Non-supine (min.) 251.5 LM Index Sleep 118.3 LM Index NREM 130.0 LM Index REM 30.9 Mean Heart Rate (bpm) 57 Min Heart Rate (bpm) 46
--- NOTE | 2018-02-04 21:34 | Sleep Study ---
Sleep Study Report Date of Service: 02/04/18 Sleep Study Report [facility] Diagnostic Polysomnogram Interp Report Study name: None Report date: 02/04/2018 Study date: 01/26/2018 Referring Physician: Dr. Senait Vasquez M.D. Name: SHELLY CRAIG Interpreting Physician: Senait Vasquez M.D. Date of : 1950 Elementary School Librarian: YSABEL Kulkarni. Sex: Male Age: 67 StudyType: PSG Weight: 178 lbs 16 Height: 67 years, Height 5' 10" Neck Circum: BMI: 25.54 DIAGNOSTIC POLYSOMNOGRAPHY REPORT This patient was referred by Dr. Senait Vasquez M.D.. SHELLY CRAIG, tested at 7:51:25 PM on 01/26/2018, is a 67 year old male, date of 1949 who is 5' 10" and 178 lbs, with a BMI of 25.54, which is elevated. This patient has an Wilsey Sleepiness Score of 6, which is normal. The neck circumference is 16 inches. Study scored by: Senait Vasquez M.D. IMPRESSION: 1-Mild obstructive sleep apnea syndrome exacerbated to the severe degree during supine sleep position ( AHI=67). These respiratory events were associated with oxygen desaturations ( ambar of 74 % ). 2-Frequent periodic limb movements not causing arousal from sleep were observed , which is a non-specific finding. These can be seen in a variety of conditions such as normal aging, primary sleep disorders such as restless legs syndrome, sleep apnea, and narcolepsy, or in association with certain medications. Clinical correlation is advised. 3-Abnormal sleep architecture likely due to respiratory events, limb movements and first night effect. RECOMMENDATIONS: 1-CPAP titration study. 2-Avoidance of alcohol and sedatives. Past medical history: Depression, Hyperlipidemia. Medications: ASA, Lexapro, Plaquenil, Deltasone, Vit D Sleep Study Summary Procedure: The study was attended continuously by a surgical technologist. The monitored parameters included: left (E1-M2) and right (E2-M1) EOG, frontal (F3- M2 & F4-M1), central (C3-M2 & C4-M1) and occipital (O1-M2 & O2-M1) EEG, mental and submental EMG, left and right anterior tibialis EMG, left and right extensor digitorum EMG, single ECG waveform, snoring, continuous airflow with thermistor and nasal pressure transducer, chest and abdominal effort, oxygen saturation, EtCO2, and body position via video monitoring. Hypopnea definition: The nasal pressure signal excursions (or those of the alternative hypopnea sensor) drop by 30% of baseline. The duration of this drop occurs for a period lasting at least 10 seconds. There is a 4 % desaturation from pre-event baseline or the event is associated with an arousal. At least 90 % of the event's duration must meet the amplitude reduction criteria for hypopnea. Sleep Data: This patient displayed normal latency to sleep onset of 39.5 min., with disrupted sleep architecture with sleep stage percentages of 9% N1, 59% N2, 0% N3, and 9% REM, with reduced sleep efficiency of 70% and with Total Sleep Time of 278.5 minutes. Respiratory Data: 31 respiratory events were observed. The apnea-hypopnea index was 6.7 which is mild. The amounts of apneas/hypopneas are not evenly distributed throughout the study, with a non-REM RDI of 7.3 and a REM RDI of 1.8. Respiratory events were more frequent in the supine position. The longest respiratory event duration was 69.1 sec. Minimum NREM oxygen saturation was 74%; minimum REM oxygen saturation was 84%. Time spent below SaO2 of 90% was 5.7 min. The time spent with SaO2 of 80-89% was 126 min. Snoring was noted to be present. Limb Movement: 549 limb movements were observed for an index of 118.3. Arousal: 49 arousals were observed, with a total index of 11. There were 8 spontaneous arousals, 19 respiratory arousals (respiratory arousal index of 4.3) , and 20 limb movement arousals (limb movement arousal index of 5). Cardiac: The average heart rate during sleep was 58 beats per minute, with a range of 46 to 127. During wake, the heart rate ranged from 47 to 127 beats per minute. There were no arrhythmias noted. Jono-Mayberry breathing was absent. EEG: There were no epileptic form features reported. Behavioral Observation: The patient reported that their sleep for this study was the same in duration and of the same quality as usual. The patient did not display unusual behaviors. Thank you for the courtesy of this referral. Dr Senait Vasquez Board Certified in Internal/ Sleep Medicine
== END | disposition home or self-care (01) ==
LOC: C.NEUR 20:00
PROVIDERS: ATTEND Internal Medicine
DX: G47.33 Obstructive sleep apnea (adult) (pediatric) (principal)